=== PATIENT | female | born 1995 | race Two or more races ===

== ENCOUNTER 2019-12-09 16:55 | Emergency (ER) | payer OTHER ==
[~2019-12-09] VITALS: Ht 162.6 cm; Wt 59.0 kg
[2019-12-09 17:02] VITALS: BP 120/82
--- NOTE | 2019-12-09 17:39 | PHYS DOC ---
Past History Past Medical History G2, MIscarry 1 General Adult EDM: Chief Complaint: ABDOMINAL PAIN IN HPI: HPI: "... I am about 11 weeks ... 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 Patient has been x2 first resulted in miscarriage. Has had 2 lifetime sexual partners. No history of STDs. No history of trauma. No history of recent travel outside [facility] area. No history of immunosuppression. 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 Patient's primary care is [place]. Patient has been taking vitamins. Patient's dog tags give her blood type O+ Review of Systems: Review of Systems: Constitutional: Denies fever or chills Eyes: Denies change in visual acuity HENT: Denies nasal congestion or sore throat Respiratory: Denies cough or shortness of breath Cardiovascular: Denies chest pain or edema GI: Denies abdominal pain, nausea, vomiting, bloody stools or diarrhea : Denies dysuria Musculoskeletal: Denies back pain or joint pain Integument: Denies rash Neurologic: Denies headache, focal weakness or sensory changes Endocrine: Denies polyuria or polydipsia Lymphatic: Denies swollen glands Psychiatric: Denies depression or anxiety Heart Score: Risk Factors: Risk Factors: DM, Current or recent (<one month) smoker, HTN, HLP, family history of CAD, obesity. Risk Scores: Score 0 - 3: 2.5% MACE over next 6 weeks - Discharge Home Score 4 - 6: 20.3% MACE over next 6 weeks - Admit for Clinical Observation Score 7 - 10: 72.7% MACE over next 6 weeks - Early Invasive Strategies Family History: Family History: Noncontributory Current Medications: Current Meds: See nursing for home meds Allergies: Allergies: Allergies Coded Allergies Type Severity Reaction Last Updated Verified No Known Drug Allergies 12/09/19 No Physical Exam: PE: Constitutional: Well developed, well nourished, moderate acute distress, non- toxic appearance. [] HENT: Normocephalic, atraumatic, bilateral external ears normal, oropharynx moist, no oral exudates, nose normal. [] Eyes: PERRLA, EOMI, conjunctiva normal, no discharge. [] Neck: Normal range of motion, no tenderness, supple, no stridor. [] Cardiovascular:Heart rate regular rhythm, no murmur [] Lungs & Thorax: Bilateral breath sounds equal at apex on auscultation [] Abdomen: Bowel sounds normal, soft, lower pelvic tenderness, no masses, no pulsatile masses. [] Os is closed. Mild white discharge Skin: Warm, dry, no erythema, no rash. [] Back: No tenderness, no CVA tenderness. [] Extremities: No tenderness, no cyanosis, no clubbing, ROM intact, no edema. [] No psoas sign. Neurologic: Alert and oriented X 3, normal motor function, normal sensory function, no focal deficits noted. [] DTRs +2 patellar and brachial. Psychologic: Affect anxious, judgement normal, mood normal. [] EKG: EKG: [] Radiology/Procedures: Radiology/Procedures: [][place] [address] IMAGING REPORT Signed PATIENT: MARY JO DEL CID ACCOUNT: [id number] : 1995 LOCATION: ER AGE: 24 SEX: F EXAM STATUS: PRE ER ORD. PHYSICIAN: ELLIOT CLARK MD REASON: ABD PAIN PROCEDURE: PREG 1ST TRIMESTER Exam: Ultrasound OB less than 14 weeks Indication: Abdominal pain Technique: Real-time grayscale and color Doppler images of the pelvis were obtained by the department car unloader. Comparisons: None FINDINGS: Uterus measures 10.7 x 9.1 x 6.8 cm. Within the endometrium there is a gestational sac with pole. pole measures 3.2 cm corresponding to 10 weeks 1 day gestation. heart rate measured at 165 bpm. Ovaries are not visualized. No free fluid. IMPRESSION: 1. Single live intrauterine gestation measuring 10 weeks 1 day by current ultrasound. Correlate with LMP. 2. Dedicated survey is recommended at 18-20 weeks gestation. Electronically signed by: Maida Graves MD (12/09/2019 6:36 PM) [facility] DICTATED AND SIGNED BY: MAIDA GRAVES MD DATE: 12/09/19 1460 CC: ELLIOT CLARK MD; PCP,NO ~ Course & Med Decision Making: Course & Med Decision Making Pertinent Labs and Imaging studies reviewed. (See chart for details) Push fluids. Clear fluids tonight. Take disc with you on follow up. You can take tylenol for pain. Continue vitamins. Make plans for your follow-up with this . Follow-up pending labs and cultures. 1. Abdomen Pain- 2. IUP 10 weeks 1 day 3. Blood Type 0 positive 4. FHR= 165 [] Dragon Disclaimer: Dragon Disclaimer: This electronic medical record was generated, in whole or in part, using a voice recognition dictation system. Departure Departure: Disposition: HOME/RESIDENCE PRIOR TO ADM Condition: STABLE Referrals: PCP,NO (PCP) Scripts Ondansetron Hcl (ZOFRAN) 8 Mg Tablet 8 MG PO QIDPRN PRN for only for active vomiting, #30 BOTTLE Prov: ELLIOT CLARK MD 12/09/19 Dragon Disclaimer This chart was dictated in whole or in part using Voice Recognition software in a busy, high-work load, and often noisy Emergency Department environment. It m ay contain unintended and wholly unrecognized errors or omissions. ELLIOT CLARK MD Dec 09, 2019 17:39
[2019-12-09] MEDS ORDERED: IV RINGERS SOLUTION,LACTATED 1,000 ML IV SCH (17:45)
[2019-12-09] MEDS ORDERED: FAMOTIDINE 20 MG/2 ML VIAL IVP ONE (17:45)
[2019-12-09] MEDS ORDERED: ONDANSETRON PF 4 MG/2 ML VIAL. IVP ONE (17:45)
[2019-12-09 18:13] LABS: BASO # 0.1 x10^3/uL (0.0-0.2); BASO % 1 % (0-3); EOS # 0.2 x10^3/uL (0.0-0.7); EOS % 2 % (0-3); HEMATOCRIT 37.6 % (36.0-47.0); HEMOGLOBIN 12.6 g/dL (12.0-15.5); LYMPH # 2.3 x10^3/uL (1.0-4.8); LYMPH % 23 % (24-48); MEAN CORPUSCULAR HEMOGLOBIN 30 pg (25-35); MEAN CORPUSCULAR HGB CONC 34 g/dL (31-37); MEAN CORPUSCULAR VOLUME 90 fL (79-100); MONO % 10 % (0-9); NEUT # 6.3 x10^3uL (1.8-7.7); NEUT % 65 % (31-73); PLATELET COUNT 246 x10^3/uL (140-400); RED BLOOD COUNT 4.18 x10^6/uL (3.50-5.40); RED CELL DISTRIBUTION WIDTH 13.5 % (11.5-14.5); WHITE BLOOD COUNT 9.8 x10^3/uL (4.0-11.0)
[2019-12-09] MEDS ORDERED: oxyCODONE/APAP 5/325 1 TAB TABLET PO ONE (18:15)
[2019-12-09 18:20] LABS: BARBITURATES NEG (NEG); BENZODIAZEPINES NEG (NEG); CANNABINOIDS NEG (NEG); COCAINE NEG (NEG); METHADONE NEG (NEG); OPIATES NEG (NEG); PHENCYCLIDINE NEG (NEG)
[2019-12-09 18:21] LABS: AMPHETAMINE/METHAMPHETAMINE NEG (NEG)
[2019-12-09 18:27] LABS: BILIRUBIN,URINE NEG (NEG); CLARITY,URINE CLEAR; COLOR,URINE STRAW; GLUCOSE,URINE NEG (NEG)
[2019-12-09 18:28] LABS: BACTERIA,URINE FEW /HPF (0-FEW); NITRITE,URINE NEG (NEG); RBC,URINE 0 /HPF (0-2); UROBILINOGEN,URINE 0.2 mg/dL (0.2 mg/dL)
[2019-12-09 18:34] LABS: ALBUMIN 3.3 g/dL (3.4-5.0); CREATININE 0.6 mg/dL (0.6-1.0); DIRECT BILIRUBIN 0.1 mg/dL (0.0-0.2); GFR 122.8; POTASSIUM 3.8 mmol/L (3.5-5.1); TOTAL BILIRUBIN 0.3 mg/dL (0.2-1.0)
--- NOTE | 2019-12-09 18:39 | RAD ---
Exam: Ultrasound OB less than 14 weeks Indication: Abdominal pain Technique: Real-time grayscale and color Doppler images of the pelvis were obtained by the department vp [employer]. Comparisons: None FINDINGS: Uterus measures 10.7 x 9.1 x 6.8 cm. Within the endometrium there is a gestational sac with pole. pole measures 3.2 cm corresponding to 10 weeks 1 day gestation. heart rate measured at 165 bpm. Ovaries are not visualized. No free fluid. IMPRESSION: 1. Single live intrauterine gestation measuring 10 weeks 1 day by current ultrasound. Correlate with LMP. 2. Dedicated survey is recommended at 18-20 weeks gestation. Electronically signed by: Estiven Fenton MD (12/09/2019 6:36 PM) [facility]
[2019-12-09] MEDS ORDERED: ONDA8TAB9 PO (22:36)
== END 2019-12-09 22:52 | disposition home or self-care (01) ==
LOC: ER 16:55
DX: O26.891 Other specified pregnancy related conditions, first trimester (principal); R10.2 Pelvic and perineal pain; Z3A.10 10 weeks gestation of pregnancy
CPT/HCPCS: 76801; 80048; 80076; 80307; 81001; 83690; 84702; 85025; 85610; 85730; 87491; 87591; 96361; 96374; 96375; 99284; J2405; J3490; J7120; Q0111